=== PATIENT | female | born 1955 | race Caucasian/White ===

== ENCOUNTER 2016-09-13 06:34 | Inpatient (IN) | payer OTHER ==
[~2016-09-13] VITALS: Ht 180.3 cm; Wt 136.9 kg
[~2016-09-13 06:34] MED LIST: IRON325 M1 PO; MUPIROCIN1 GM TP
[2016-09-13 07:47] VITALS: BP 195/84
[2016-09-13 13:05] VITALS: BP 173/81
[2016-09-13 13:30] LABS: GFR ESTIMATE (CALCULATED) > 59 mL/min/
[2016-09-13 15:34] VITALS: BP 169/78
[2016-09-13 17:29] VITALS: BP 153/83
[2016-09-13 20:04] VITALS: BP 131/67
[2016-09-13 23:49] VITALS: BP 179/77
[2016-09-14 04:02] VITALS: BP 119/60
[2016-09-14 06:14] LABS: HEMATOCRIT 35.5 % (36.0-46.0); MCV 93.2 FL (83-99)
[2016-09-14 06:51] LABS: ANION GAP 8 MEQ/L (2-14); CHLORIDE 104 MEQ/L (99-109); GFR ESTIMATE (CALCULATED) 48 mL/min/; GLUCOSE 185 mg/dL (70-99); POTASSIUM 4.5 MEQ/L (3.7-5.4); SAMPLE HEMOLYSIS CHECK 0; SAMPLE ICTERIC CHECK 0; SAMPLE LIPEMIA CHECK 0; SODIUM 137 MEQ/L (136-147); UREA NITROGEN (BUN) 17 mg/dL (9-23)
[2016-09-14 08:00] VITALS: BP 143/71
[2016-09-14] MEDS ORDERED: XARELTO10 MG PO (09:47)
[2016-09-14] MEDS ORDERED: OXYCODONE HCL5 MG PO (09:47)
[2016-09-14 12:20] VITALS: BP 138/62
[2016-09-14 16:01] VITALS: BP 123/57
[2016-09-14 20:15] VITALS: BP 137/63
[2016-09-14 20:43] VITALS: BP 137/63
[2016-09-15] VITALS: BP 125/57
[2016-09-15 00:43] VITALS: BP 125/57
[2016-09-15 04:07] VITALS: BP 125/58
[2016-09-15 04:56] LABS: HEMATOCRIT 32.1 % (36.0-46.0)
[2016-09-15 05:09] LABS: CHLORIDE 106 mEq/L (99-109); SODIUM 139 mEq/L (136-147)
[2016-09-15 05:11] LABS: GLUCOSE 150 mg/dL (70-99)
[2016-09-15 05:12] LABS: ANION GAP 8 MEQ/L (2-14)
[2016-09-15 05:15] LABS: GFR ESTIMATE (CALCULATED) 53 mL/min/
[2016-09-15 05:16] LABS: UREA NITROGEN (BUN) 21 mg/dL (9-23)
[2016-09-15 07:30] VITALS: BP 128/61
[2016-09-15 07:50] LABS: Estimated Average Glucose 151 mg/dL (70-123); HEMOGLOBIN A1c (GLYCOHEMOGLOB) 6.9 % HGB (Below 5.7)
[2016-09-15 11:42] VITALS: BP 125/74
== END 2016-09-15 15:26 | DRG 470 ==
LOC: 2SOUTH 06:34 → 3WEST 12:57 → 2SOUTH 14:57 → 3WEST 09-15 15:26
PROVIDERS: Orthopaedic Surgery; Physician Assistant
PROC: 0SRD0J9 Replacement of Left Knee Joint with Synthetic Substitute, Cemented, Open Approach (ICD-10-PCS; principal; 2016-09-13)
DX: M17.12 Unilateral primary osteoarthritis, left knee (principal); F32.9 Major depressive disorder, single episode, unspecified
CPT/HCPCS: 80048; 82565; 83036; 85014; 85018; C1713; J0131; J0330; J0690; J1100; J1170; J1885; J2250; J2405; J2795; J3370; J7050; J7120; L1820; S0020